=== PATIENT | male | born 1950 | race Hispanic/Latino ===

== ENCOUNTER 2022-09-07 14:10 | Emergency (ER) | payer MEDICARE ==
[~2022-09-07] VITALS: Ht 167.6 cm; Wt 49.9 kg
[~2022-09-07 14:10] MED LIST: FOLI0.8T2 PEG; FOLI1 PO; GABAPENTIN PEG; LISI10TA24 PEG; LOPE2TAB26 PEG; MAGN500C4 PEG; MELA3TAB43 PEG; ONDA-104 PEG; PANT40SU PEG; POLY17PO4 PEG; ROSU5TAB12 PEG
[2022-09-07 18:09] LABS: BASOPHILS % (AUTO) 0.4 % (0.0-5.0); EOSINOPHILS % (AUTO) 1.6 % (0.0-8.0); HEMATOCRIT 24.7 % (42-54); LYMPHOCYTES % (AUTO) 12.5 % (21.0-51.0); MEAN CORPUSCULAR HEMOGLOBIN 29.8 pg (27.0-33.0); MEAN CORPUSCULAR HGB CONC 32.8 g/dL (32.0-36.0); MEAN CORPUSCULAR VOLUME 90.8 fL (79-99); MONOCYTES % (AUTO) 10.4 % (3.0-13.0); NEUTROPHILS % (AUTO) 74.1 % (40.0-77.0); PLATELET COUNT (AUTO) 272 K/uL (130-400); RED BLOOD CELL COUNT(AUTO) 2.72 MIL/uL (4.50-6.20); RED CELL DISTRIBUTION WIDTH 19.9 % (11.0-15.5)
[2022-09-07 18:19] LABS: CREATININE 1.9 mg/dL (0.5-1.5); POTASSIUM 4.4 mmol/L (3.5-5.1)
[2022-09-07 19:46] VITALS: BP 132/72
== END 2022-09-07 22:02 | disposition home or self-care (01) ==
LOC: EDH 14:10
DX: K94.23 Gastrostomy malfunction (principal); I12.9 Hypertensive chronic kidney disease with stage 1 through stage 4 chronic kidney disease, or unspecified chronic kidney disease; E11.22 Type 2 diabetes mellitus with diabetic chronic kidney disease; N18.9 Chronic kidney disease, unspecified; Z79.899 Other long term (current) drug therapy
CPT/HCPCS: 36415; 80048; 85025

== ENCOUNTER 2022-09-08 12:24 | Day surgery (SDC) | payer MEDICARE ==
[~2022-09-08] VITALS: Ht 167.6 cm; Wt 58.5 kg
[2022-09-08 13:23] VITALS: BP 128/71
[2022-09-08] MEDS ORDERED: 0.9%NACL 1000ML 1,000 ML IV ONE (13:43)
[2022-09-08] MEDS ORDERED: HEPARIN 1,000 UNIT VIAL ONE (14:33)
[2022-09-08] MEDS ORDERED: LIDOCAINE HCL 1% MDV 50ML VIAL ONE (14:33)
[2022-09-08] MEDS ORDERED: IODIXANOL 320 MG/ML 100 ML VIAL ONE (14:33)
== END 2022-09-08 16:27 | disposition home or self-care (01) ==
LOC: DAH 12:24
PROVIDERS: ATTEND Internal Medicine
DX: K94.23 Gastrostomy malfunction (principal); R13.12 Dysphagia, oropharyngeal phase; E43 Unspecified severe protein-calorie malnutrition; E11.22 Type 2 diabetes mellitus with diabetic chronic kidney disease; I12.9 Hypertensive chronic kidney disease with stage 1 through stage 4 chronic kidney disease, or unspecified chronic kidney disease; N18.9 Chronic kidney disease, unspecified; I25.10 Atherosclerotic heart disease of native coronary artery without angina pectoris; D50.0 Iron deficiency anemia secondary to blood loss (chronic); I95.1 Orthostatic hypotension; Z85.028 Personal history of other malignant neoplasm of stomach; Z82.49 Family history of ischemic heart disease and other diseases of the circulatory system; Z83.3 Family history of diabetes mellitus; Z80.3 Family history of malignant neoplasm of breast; Z86.73 Personal history of transient ischemic attack (TIA), and cerebral infarction without residual deficits; Z79.899 Other long term (current) drug therapy; Z98.890 Other specified postprocedural states
CPT/HCPCS: 49452; 82948; C1769; B4087; J7030; J1644; J3490; Q9967